=== PATIENT | male | born 2005 | race African-American/Black ===

== ENCOUNTER 2023-12-08 04:50 | Emergency (ER) | payer OTHER ==
[~2023-12-08] VITALS: Ht 172.7 cm; Wt 68.0 kg
[2023-12-08 04:55] VITALS: BP 135/75; PULSE 101; RESP 20; TEMP 98; O2SAT 98
[2023-12-08 05:18] VITALS: BP 135/75; PULSE 101; RESP 20; TEMP 98; O2SAT 98
== END 2023-12-08 05:18 ==
LOC: MED 04:50
DX: Z04.1 Encounter for examination and observation following transport accident (principal); R03.0 Elevated blood-pressure reading, without diagnosis of hypertension; V89.2XXA Person injured in unspecified motor-vehicle accident, traffic, initial encounter; Y93.89 Activity, other specified; Y92.89 Other specified places as the place of occurrence of the external cause; Y99.8 Other external cause status
CPT/HCPCS: 99283